=== PATIENT | male | born 1950 | race Caucasian/White ===

== ENCOUNTER → 2017-09-10 | Outpatient (CLI) | payer MEDICARE ==
--- NOTE | 2017-09-10 12:52 | PCVCIMAG ---
APPROVED REPORT Exam: Stress Echocardiogram Indication: Dyspnea, DM, RBBB, Hypertension Patient Location: Echo lab Stress Nurse: Tatianna Ervin RN Status: routine Ht: 6 ft 1 in HR: 86 bpm BP: 120/82 mmHg Rhythm: NSR w/ RBBB Procedure The patient underwent an Exercise Stress Test using the Kenneth Protocol. Blood pressure, heart rate, and EKG were monitored. An Echocardiogram was performed by fire extinguisher technician in four stages in quad fashion. At peak stress, four selected images were obtained and placed side by side with resting images for comparison. Stress Test Details Stress Test: Exercise stress testing was performed using a Kenneth protocol. HR Resting HR: 86 bpmMax Heart Rate (APMHR): 152 bpm Max HR Achieved: 148 bpmTarget HR (85% APMHR): 129 bpm % of APMHR: 97 Recovery HR: 106 bpm HR response to stress: Normal HR response to stress BP Resting BP: 120/82 mmHg Max BP: 180/70 mmHg Recovery BP: 130/70 mmHg ECG Resting ECG: Sinus Rhythm, RBBB Stress ECG: Sinus Rhythm, RBBB ST Change: Normal Maximum ST Deviation: 0 mm Arrhythmia: None Recovery ECG: Sinus Rhythm, RBBB Recovery ST Change: Normal Recovery ST Deviation: 0 mm Recovery Arrhythmia: APC Clinical Reason for Termination: Maximal effort Stress Symptoms: Dyspnea Exercise duration: 9 min 15 sec Highest Stage Achieved: Stage 4: 4.2 mph at 16% grade. Exercise capacity: 10.7 METs Overall Exercise Capacity for Age: Good Angina Score: None Stress ECG Conclusion Clinical: Non-ischemic ECG: Non-ischemic Delgado Treadmill Score is 9.0 which is Low risk. Pre-Stress Echo The resting Echocardiogram showed normal left ventricular contractility with an estimated Ejection Fraction of about >55%. Normal wall motion in all segments on baseline images. Post-Stress Echo The stress Echocardiogram showed normal left ventricular contractility with an estimated Ejection Fraction of about 65-70%. Normal augmentation of wall motion in all segments on post stress images. Clinical No clinical or ECG evidence for ischemia. Conclusion Clinical Response: Non-ischemic Exercise Capacity: Average Stress ECG Response: Non-ischemic Stress Echo Images: Non-ischemic The left ventricle is normal in size and wall thickness in both the rest and stress images. Other Information Study Quality: Adequate <Conclusion> The left ventricle is normal in size and wall thickness in both the rest and stress images.
== END | disposition home or self-care (01) ==
LOC: PCVCIMAG 09:48
PROVIDERS: ATTEND Internal Medicine
DX: I10 Essential (primary) hypertension (principal); E11.9 Type 2 diabetes mellitus without complications; R06.00 Dyspnea, unspecified; I45.10 Unspecified right bundle-branch block
CPT/HCPCS: 93325; 93351

== ENCOUNTER → 2018-07-25 | Outpatient (CLI) | payer MEDICARE ==
--- NOTE | 2018-07-25 16:51 | PCVCIMAG ---
APPROVED REPORT Study performed: 07/25/2018 15:02:04 Exam: Stress Echocardiogram Indication: Chest Tightness, Dyspnea on Exertion Patient Location: Echo lab Stress Nurse: Tatianna Ervin RN Status: routine Ht: 6 ft 1 in HR: 63 bpm BP: 152/82 mmHg Rhythm: RBBB, NSR Medical History Medical History: Hyperlipidemia, HTN, Diabetes Procedure The patient underwent an Exercise Stress Test using the Kenneth Protocol. Blood pressure, heart rate, and EKG were monitored. An Echocardiogram was performed by all source intelligence technician in four stages in quad fashion. At peak stress, four selected images were obtained and placed side by side with resting images for comparison. Stress Test Details Stress Test: Exercise stress testing was performed using a Kenneth protocol. HR Resting HR: 63 bpmMax Heart Rate (APMHR): 152 bpm Max HR Achieved: 117 bpmTarget HR (85% APMHR): 129 bpm % of APMHR: 76 Recovery HR: 74 bpm BP Resting BP: 152/82 mmHg Max BP: 170/70 mmHg Recovery BP: 138/74 mmHg ECG Resting ECG: Sinus Rhythm, RBBB, leftward axis Stress ECG: Sinus Rhythm, RBBB ST Change: Normal Maximum ST Deviation: 0 mm Arrhythmia: APC's Recovery ECG: Sinus Rhythm, RBBB Recovery ST Change: Normal Recovery ST Deviation: 0 mm Recovery Arrhythmia: None Clinical Reason for Termination: Fatigue, Gait instability Exercise duration: 6 min 10 sec Highest Stage Achieved: Stage 2: 2.5 mph at 12% grade. Exercise capacity: 7.40 METs Angina Score: None Stress ECG Conclusion Delgado Treadmill Score is 6.0 which is Low risk. Pre-Stress Echo The resting Echocardiogram showed normal left ventricular contractility with an estimated Ejection Fraction of about >55%. Normal wall motion in all segments on baseline images. Post-Stress Echo The stress Echocardiogram showed normal left ventricular contractility with an estimated Ejection Fraction of about 60-65%. Conclusion Clinical Response: Non-ischemic Exercise Capacity: Below Average Stress ECG Response: Non-diagnostic Stress Echo Images: Non-ischemic Non-diagnostic study due to low heart rate achieved (76% of predicted heart rate for age) Suggest myocardial perfusion imaging, scheduled <Conclusion> Non-diagnostic study due to low heart rate achieved (76% of predicted heart rate for age) Suggest myocardial perfusion imaging, scheduled
== END | disposition home or self-care (01) ==
LOC: PCVCIMAG 16:30
PROVIDERS: ATTEND Internal Medicine
DX: I10 Essential (primary) hypertension (principal); E11.9 Type 2 diabetes mellitus without complications; R06.09 Other forms of dyspnea
CPT/HCPCS: 93325; 93351

== ENCOUNTER → 2018-07-29 | Outpatient (CLI) | payer MEDICARE ==
[~2018-07-29] MED LIST: REGADENOSON 0.4 MG/5 ML DISP.SYRIN. IV ONE
--- NOTE | 2018-07-29 13:28 | PCVCIMAG ---
APPROVED REPORT Imaging Protocol: Rest Tc-99m/Stress Tc-99m 1 day Study performed: 07/29/2018 09:37:33 Indication: HAILE, High Ca Score Patient Location: Out-Patient Stress Nurse: Chantale Sarmiento RN [place] Tech:Bernice Villegasflex [facility] [place] Ht: 6 ft 1 in Wt: 195 lbs BSA: 2.13 m2 HR: 78 bpm BP: 185/87 mmHg BMI: 25.7 Rhythm: SR, RBBB Medical History Medical History: HTN, Hyperlipidemia, Diabetes, Former Smoker Medications: Gabapentin, Lisinopril, Metformin, Prilosec, Zantac, Atorvastatin, (held all meds) Allergies: No known drug allergies Cardiac Risk Factors: Age Pretest Chest Pain Characteristics: No chest pain Resting Data Rest SPECT myocardial perfusion imaging was performed in supine position 45 minutes following the intravenous injection of 10.8 mCi of Tc-99m Sestamibi. Time of rest injection: 914 Date: 07/29/2018 Administration Route: IV Administration Site: Right AC Pharmacologic Stress Pharmacologic stress test was performed by injecting Regadenoson 0.4 mg IV push over 10-15 seconds immediately followed by the intravenous injection of 34.3 mCi of Tc-99m Sestamibi. Time of stress injection: 1044 Date: 07/29/2018 Administration Route: IV Administration Site: Right AC Gated Stress SPECT was performed 45 minutes after stress injection. The images were gated to evaluate regional wall motion and calculate left ventricular ejection fraction. Stress Test Details Stress Test: Pharmacologic stress was paired with low level exercise. Reason for pharmacologic stress test: submaximal SE. HRMax Heart Rate (APMHR): 152 bpm Resting HR: 78 bpmTarget HR (85% APMHR): 129 bpm Max HR Achieved: 112 bpm % of APMHR: 73 Recovery HR: 88 bpm BP Resting BP: 185/87 mmHg Recovery BP: 157/72 mmHg ECG Resting ECG: Sinus Rhythm, RBBB Stress ECG: Sinus Rhythm, RBBB ST Change: None Maximum ST Deviation: 0 mm Arrhythmia: VPC Recovery ECG: SR with R BBB Recovery ST Change: None Recovery ST Deviation: 0 mm Clinical Reason for Termination: Completed protocol Stress Symptoms: Dyspnea Exercise duration: 4 min 00 sec Exercise capacity: 1.6 METs Symptoms resolved with caffeine. Stress ECG Conclusion Normal hemodynamic response to pharmacologic stress. Clinical: Non-ischemic Study Quality Study: Good Study Data Post stress, the left ventricular ejection was 68%.. SSS: 1 SRS: 0 SDS: 1 TID = 1.20. Perfusion No evidence of stress induced ischemia or prior myocardial infarction. Wall Motion Normal left ventricular size and function with no regional wall motion abnormalities. Nuclear Conclusion No evidence of stress induced ischemia or prior myocardial infarction. Normal left ventricular size and function with no regional wall motion abnormalities. Post stress, the left ventricular ejection was 68%. No prior study available for comparison. Interpreted by: Chepe Eden MD Electronically Approved: 07/29/2018 12:44:53 <Conclusion> Normal hemodynamic response to pharmacologic stress. Clinical: Non-ischemic
== END | disposition home or self-care (01) ==
LOC: PCVCIMAG 12:56
PROVIDERS: ATTEND Internal Medicine
DX: E11.9 Type 2 diabetes mellitus without complications (principal); R06.09 Other forms of dyspnea; R07.89 Other chest pain
CPT/HCPCS: 78452; 93017; A9500; J2785

== ENCOUNTER → 2018-09-10 | Outpatient (CLI) | payer MEDICARE ==
--- NOTE | 2018-09-10 12:39 | PCVCIMAG ---
APPROVED REPORT Indications Bruit Risk Factors Hypertension: Doppler Spectral Velocity Analysis PSV / EDVPSV / EDV ECA (R) 89 / 12 cm/sECA (L) 91 / 6 cm/s dICA (R) 72 / 22 cm/sdICA (L) 52 / 14 cm/s Sebas (R) 53 / 17 cm/smICA (L) 103 / 25 cm/s pICA (R) 113 / 25 cm/spICA (L) 108 / 30 cm/s Bulb (R) 89 / 17 cm/sBulb (L) 77 / 14 cm/s dCCA (R) 95 / 20 cm/sdCCA (L) 84 / 18 cm/s mCCA (R) 94 / 22 cm/smCCA (L) 112 / 16 cm/s Vert (R) 50 / 15 cm/sVert (L) 77 / 8 cm/s ICA/CCA 1.19ICA/CCA 1.29 Basic Measurements Blood Pressure: Pulses: Right Left RightLeft Brachial(Sitting) 126/65uhOb439/90mmHgTemporal Real Time B-Mode Imaging Vert. (R)AntegradeVert. (L)Antegrade Findings The right carotid bulb has moderate calcified plaque. The right proximal internal carotid artery shows 40-50% stenosis. The right common carotid artery shows no significant stenosis. The right external carotid artery shows no significant stenosis. The left carotid bulb has moderate calcified plaque. The left proximal internal carotid artery shows <40% stenosis. The left common carotid artery shows no significant stenosis. The left external carotid artery shows no significant stenosis. Conclusion 1. Right internal carotid artery stenosis (40-50%) 2. Left internal carotid artery stenosis (<40%) 3. Antegrade vertebral flow
== END | disposition home or self-care (01) ==
LOC: PCVCIMAG 09:41
PROVIDERS: ATTEND Internal Medicine
DX: I65.23 Occlusion and stenosis of bilateral carotid arteries (principal); R09.89 Other specified symptoms and signs involving the circulatory and respiratory systems; R06.02 Shortness of breath; I10 Essential (primary) hypertension; E78.5 Hyperlipidemia, unspecified; E11.9 Type 2 diabetes mellitus without complications; K21.9 Gastro-esophageal reflux disease without esophagitis; F32.9 Major depressive disorder, single episode, unspecified; Z79.899 Other long term (current) drug therapy
CPT/HCPCS: 80061; 93880; G0463

== ENCOUNTER → 2019-03-13 | Outpatient (CLI) | payer MEDICARE | END | disposition home or self-care (01) | LOC: PCVCCLINIC 10:10 | PROVIDERS: ATTEND Internal Medicine | DX: I65.23 Occlusion and stenosis of bilateral carotid arteries (principal); I45.10 Unspecified right bundle-branch block; I10 Essential (primary) hypertension; R94.31 Abnormal electrocardiogram [ECG] [EKG]; E78.5 Hyperlipidemia, unspecified; E11.8 Type 2 diabetes mellitus with unspecified complications; K21.9 Gastro-esophageal reflux disease without esophagitis; Z87.891 Personal history of nicotine dependence; Z79.899 Other long term (current) drug therapy | CPT/HCPCS: 36415; 80061; 93005; G0463 ==

== ENCOUNTER → 2019-09-24 | Outpatient (CLI) | payer MEDICARE ==
--- NOTE | 2019-09-24 10:39 | PCVCIMAG ---
APPROVED REPORT Indications Stenosis Risk Factors Hypertension: Doppler Spectral Velocity Analysis PSV / EDVPSV / EDV ECA (R) 83 / 6 cm/sECA (L) 105 / 0 cm/s dICA (R) 56 / 17 cm/sdICA (L) 63 / 14 cm/s Sebas (R) 65 / 18 cm/smICA (L) 88 / 21 cm/s pICA (R) 116 / 22 cm/spICA (L) 110 / 21 cm/s Bulb (R) 77 / 13 cm/sBulb (L) 100 / 8 cm/s dCCA (R) 93 / 16 cm/sdCCA (L) 124 / 14 cm/s mCCA (R) 112 / 14 cm/smCCA (L) 144 / 16 cm/s Vert (R) 51 / 15 cm/sVert (L) 48 / 10 cm/s ICA/CCA 1.25ICA/CCA 0.89 Basic Measurements Blood Pressure: Pulses: Right Left RightLeft Brachial(Sitting) 110/20244yzSd18/mmHgTemporal Real Time B-Mode Imaging Vert. (R)AntegradeVert. (L)Antegrade Findings RIGHT CAROTID: The carotid bulb has moderate plaque. The proximal internal carotid artery shows 40% stenosis. The common carotid artery shows no significant stenosis. The external carotid artery shows no significant stenosis. LEFT CAROTID: The carotid bulb has moderate plaque. The proximal internal carotid artery shows 40% stenosis. The common carotid artery shows no significant stenosis. The external carotid artery shows no significant stenosis. Conclusion 40% stenosis of the right internal carotid artery with moderate plaque. 40% stenosis of the left internal carotid artery with moderate plaque. Little overall change since 2018 study.
== END | disposition home or self-care (01) ==
LOC: PCVCIMAG 09:56
PROVIDERS: ATTEND Internal Medicine
DX: I65.23 Occlusion and stenosis of bilateral carotid arteries (principal); R94.31 Abnormal electrocardiogram [ECG] [EKG]; I10 Essential (primary) hypertension; E78.5 Hyperlipidemia, unspecified; I45.10 Unspecified right bundle-branch block; K21.9 Gastro-esophageal reflux disease without esophagitis; E11.9 Type 2 diabetes mellitus without complications; Z90.09 Acquired absence of other part of head and neck; Z80.9 Family history of malignant neoplasm, unspecified; Z82.3 Family history of stroke; Z87.891 Personal history of nicotine dependence; Z79.899 Other long term (current) drug therapy
CPT/HCPCS: 36415; 80061; 93005; 93880; G0463